=== PATIENT | male | born 1990 | race Caucasian/White ===

== ENCOUNTER 2018-04-05 19:00 | Emergency (ER) | payer SELFPAY ==
[~2018-04-05] VITALS: Ht 177.8 cm; Wt 81.6 kg
[2018-04-05 19:14] VITALS: BP 155/59
--- NOTE | 2018-04-05 19:20 | NUR ---
PATIENT PRESENTS TO ED WITH C/O ABD PAIN X 1 MONTH. NO C/O PAINFUL URINATION, NAUSEA OR VOMITTING. PT SKIN IS PINK/WARM/DRY; AAOX4 WITH EVEN AND STEADY GAIT; LUNGS CLEAR BL; HR EVEN AND REGULAR; PATIENT STATES PAIN OF 7/10 AT THIS TIME; VSS; PATIENT POSITIONED FOR COMFORT; HOB ELEVATED; BEDRAILS UP X2; BED DOWN.
--- NOTE | 2018-04-05 19:25 | NUR ---
REPORT RECEIVED FROM PATRICK, RN
--- NOTE | 2018-04-05 19:34 | NUR ---
Dr. Nash evaluating patient at bedside.
[2018-04-05] MEDS ORDERED: LIDOCAINE VISCOUS 2% 20 ML UDC PO ONE (19:50)
[2018-04-05] MEDS ORDERED: ALUMINUM HYD/MAG/SIMETHICONE 30 ML UDC PO ONE (19:50)
[2018-04-05] MEDS ORDERED: DICYCLOMINE HCL LIQUID 10 MG/5 ML UDC PO ONE (19:50)
[2018-04-05] MEDS ORDERED: KETOROLAC 60 MG/2 ML VIAL IM ONE (21:05)
[2018-04-05] MEDS ORDERED: PANTOPRAZOLE 40 MG TABEC PO ONE (21:05)
--- NOTE | 2018-04-05 21:49 | NUR ---
Patient discharged with v/s stable. Written and verbal after care instructions given and explained. Patient alert, oriented and verbalized understanding of instructions. Ambulatory with steady gait. All questions addressed prior to discharge. ID band removed. Patient advised to follow up with PMD. Rx of MOTRIN AND OMEPRAZOLE given. Patient educated on indication of medication including possible reaction and side effects. Opportunity to ask questions provided and answered.
[2018-04-05 21:50] VITALS: BP 130/62
== END 2018-04-05 21:49 | disposition home or self-care (01) ==
LOC: MED 19:00
DX: S39.012A Strain of muscle, fascia and tendon of lower back, initial encounter (principal); K29.70 Gastritis, unspecified, without bleeding; X58.XXXA Exposure to other specified factors, initial encounter; Y93.89 Activity, other specified; Y92.89 Other specified places as the place of occurrence of the external cause; Y99.8 Other external cause status
CPT/HCPCS: 93005; 96372; 99284; J1885; 99283